=== PATIENT | male | born 1965 | race Caucasian/White ===

== ENCOUNTER 2022-10-20 17:56 | Emergency (ER) | payer OTHER | END 2022-10-20 21:18 | disposition home or self-care (01) | LOC: JD.ED 17:56 | DX: M71.22 Synovial cyst of popliteal space [Baker], left knee (principal); R60.0 Localized edema; I10 Essential (primary) hypertension; Z79.82 Long term (current) use of aspirin; Z79.899 Other long term (current) drug therapy; Z88.8 Allergy status to other drugs, medicaments and biological substances | CPT/HCPCS: 93971-26-LT; 93971-LT; 99283 ==

== ENCOUNTER 2023-01-29 11:03 | Emergency (ER) | payer OTHER ==
[2023-01-29] MEDS ORDERED: Sodium Chloride 0.9% 10 ML Syringe FLUSH PRN (11:25)
[2023-01-29] MEDS ORDERED: Diltiazem 25 MG/5 ML SDV IVPUSH ONE (11:26)
[2023-01-29] MEDS ORDERED: Sodium Chloride 0.9% 1,000 ML IV SCH (11:30)
[2023-01-29 11:38] LABS: BASOPHILS ABSOLUTE AUTO 0.02 K/mm3 (0.01-0.08); BASOPHILS PERCENT AUTO 0.2 % (0.1-1.2); EOSINOPHILS ABSOLUTE AUTO 0.02 K/mm3 (0.04-0.54); EOSINOPHILS PERCENT AUTO 0.2 (0.8-7.0); HEMATOCRIT 50.4 % (40.1-51.0); HEMOGLOBIN 16.1 gm/dl (13.7-17.5); IMMATURE GRAN PERCENT AUTO 1.1 % (<=1.0); LYMPHOCYTES ABSOLUTE AUTO 0.91 K/mm3 (1.32-3.57); MEAN CORPUSCULAR HEMOGLOBIN 28.6 pg (25.7-32.2); MEAN CORPUSCULAR HGB CONC 31.9 g/dl (32.2-35.5); MEAN CORPUSCULAR VOLUME 89.5 fl (79.0-92.2); MEAN PLATELET VOLUME 11.5 fl (9.4-12.3); MONOCYTES ABSOLUTE AUTO 0.27 K/mm3 (0.30-0.82); NEUTROPHILS ABSOLUTE AUTO 7.81 K/mm3 (1.78-5.38); NEUTROPHILS PERCENT AUTO 85.5 % (34.0-67.9); PLATELET COUNT,PLT 246 K/mm3 (163-337); RED BLOOD CELL COUNT 5.63 M/mm3 (4.63-6.08); WHITE BLOOD CELL COUNT,WBC 9.13 K/mm3 (4.23-9.07)
[2023-01-29 12:02] LABS: A/G RATIO 1.3 (1-2); ANION GAP 14.4 (5-15); BILIRUBIN TOTAL 0.7 mg/dL (0.2-1.0); BUN/CREATININE RATIO 16.5 (14-18); CALCIUM 8.9 mg/dL (8.5-10.1); CREATININE 1.7 mg/dL (0.7-1.3); EST CRCL DRUG DOSING (CG) 47.94 mL/min; MAGNESIUM 2.3 mg/dL (1.8-2.4); POTASSIUM,K 5.4 mEq/L (3.5-5.1); PROTEIN TOTAL,TP 7.1 g/dl (6.4-8.2)
[2023-01-29] MEDS ORDERED: Heparin Sodium 5,000 Units/ML Vial IVPUSH ONE (12:36)
[2023-01-29] MEDS ORDERED: Heparin Sodium/D5W 25,000 UNITS/500 ML BAG IV SCH (12:45)
[2023-01-29] MEDS ORDERED: Aspirin 81 MG Tab.Chew PO ONE (13:49)
== END 2023-01-29 16:35 | disposition home or self-care (01) ==
LOC: JD.ED 11:03
DX: I48.92 Unspecified atrial flutter (principal); R77.8 Other specified abnormalities of plasma proteins; I10 Essential (primary) hypertension; Z88.8 Allergy status to other drugs, medicaments and biological substances
CPT/HCPCS: 36415; 71045; 80053; 83735; 84484; 85025; 93005; 96365; 96366; 96375; 99285; A9270; J1644; J3490; J7030; 93010; 99284